=== PATIENT | male | born 1955 | race Caucasian/White ===

== ENCOUNTER 2018-08-26 15:07 | Emergency (ER) | payer MEDICARE ==
[~2018-08-26] VITALS: Ht 180.3 cm; Wt 58.2 kg
[~2018-08-26 15:07] MED LIST: HIV MEDICATION; NAPROSYN500 MG PO
[2018-08-26] MEDS ORDERED: ATRIPLA PO (15:24)
[2018-08-26 16:37] LABS: HEMATOCRIT 29.1 % (39.0-50.0); HEMOGLOBIN 9.2 g/dl (14.0-18.0); IMMATURE GRANULOCYTES 0.5 % (0.0-5.0); MEAN CELL VOLUME 81.3 fL CALC (80.0-100.0); MEAN CORPUSCULAR HGB 25.7 pG CALC (26.0-32.0); MEAN CORPUSCULAR HGB CONC 31.6 g/L CALC (32.0-36.0); NEUT# 7.16 thou/uL (1.82-7.42); RED BLOOD COUNT 3.58 mill/uL (4.70-6.10); RED CELL DISTRI WIDTH 21.6 % (11.5-15.5)
[2018-08-26 16:51] LABS: INTERNATIONAL NORMALIZED RATIO 1.1 RATIO (0.7-1.3); PROTHROMBIN TIME 11.6 SECONDS (9.0-12.5)
[2018-08-26 16:52] LABS: ALKALINE PHOSPHATASE 146 u/l (38-126); ANION GAP 14 (6-22 (CALC)); BUN 12 mg/dL (8-23); BUN/CREATININE RATIO 14 (12-20 (CALC)); CARBON DIOXIDE 20 mmol/l (22-30); CHLORIDE 108 mmol/l (95-108); CREATININE 0.9 mg/dL (0.7-1.3); GFR > 60 ML/MIN (>=60 (CALC)); GFR FOR AFR.AMER. > 60 ML/MIN (>=60 (CALC)); POTASSIUM 3.6 mmol/l (3.5-5.1); SGOT/AST 37 u/l (19-48); SODIUM 138 mmol/l (137-146); TOTAL PROTEIN 7.4 g/dL (6.3-8.2)
[2018-08-26 16:58] LABS: ALBUMIN 3.7 g/dL (3.2-5.0); BILIRUBIN, TOTAL 0.6 mg/dL (0.0-1.4)
[2018-08-26 19:37] VITALS: BP 106/63
== END 2018-08-26 19:37 | disposition short-term general hospital (02) ==
LOC: ED 15:07
PROVIDERS: Emergency Medicine
DX: K92.2 Gastrointestinal hemorrhage, unspecified (principal); I44.2 Atrioventricular block, complete; D64.9 Anemia, unspecified; Z21 Asymptomatic human immunodeficiency virus [HIV] infection status
CPT/HCPCS: J0131; S0164

== ENCOUNTER 2019-04-10 | Emergency (ER) | payer MEDICARE ==
[~2019-04-10] MED LIST changes: +ATRIPLA PO
== END 2019-04-10 22:38 | disposition left against medical advice (07) ==
DX: S06.300A Unspecified focal traumatic brain injury without loss of consciousness, initial encounter (principal); S81.812A Laceration without foreign body, left lower leg, initial encounter; S30.810A Abrasion of lower back and pelvis, initial encounter; S50.311A Abrasion of right elbow, initial encounter; S50.312A Abrasion of left elbow, initial encounter; V18.4XXA Pedal cycle driver injured in noncollision transport accident in traffic accident, initial encounter; Y93.55 Activity, bike riding; Y92.410 Unspecified street and highway as the place of occurrence of the external cause; Z21 Asymptomatic human immunodeficiency virus [HIV] infection status; Z91.19 Patient's noncompliance with other medical treatment and regimen

== ENCOUNTER → 2020-05-21 15:25 | Emergency (ER) | payer MEDICARE | END | disposition left against medical advice (07) | LOC: LWOBS 15:25 → ED 15:25 | DX: Z53.21 Procedure and treatment not carried out due to patient leaving prior to being seen by health care provider (principal) ==

== ENCOUNTER 2020-11-05 16:17 | Emergency (ER) | payer MEDICARE ==
[~2020-11-05] VITALS: Ht 180.3 cm; Wt 44.5 kg
[2020-11-05 17:44] VITALS: BP 118/71
== END 2020-11-05 17:53 | disposition home or self-care (01) ==
LOC: ED 16:17
DX: U07.1 COVID-19 (principal); C22.9 Malignant neoplasm of liver, not specified as primary or secondary; Z79.899 Other long term (current) drug therapy; Z21 Asymptomatic human immunodeficiency virus [HIV] infection status